=== PATIENT | female | born 1980 | race American Indian/Alaskan Native ===

== ENCOUNTER 2017-10-04 18:18 | Emergency (ER) | payer BC, OTHER ==
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
== END 2017-10-04 19:13 | disposition home or self-care (01) ==
LOC: DL.ED 18:18
DX: S06.0X0A Concussion without loss of consciousness, initial encounter (principal); S00.03XA Contusion of scalp, initial encounter; F17.210 Nicotine dependence, cigarettes, uncomplicated; W22.8XXA Striking against or struck by other objects, initial encounter
CPT/HCPCS: 99282